=== PATIENT | male | born 1950 | race Caucasian/White ===

== ENCOUNTER 2016-12-17 10:59 | Day surgery (SDC) | payer MEDICARE, OTHER ==
[~2016-12-17] VITALS: Ht 188 cm; Wt 105.0 kg
[~2016-12-17 10:59] MED LIST: DICL75TA6 PO; FOLI0.4T2 PO; HYDR25TA4 PO; Lactated Ringer's 1,000 ML IV ONE; MULT-1073 PO
[2016-12-17] MEDS ORDERED: Propofol 10,000 mCg/mL 20 mL Inj ONE ×2 (11:00)
[2016-12-17] MEDS ORDERED: Lidocaine PF 1% 30 mL Inj ONE ×2 (11:00)
[2016-12-17 11:14] VITALS: BP 120/83; PULSE 85; RESP 16; O2SAT 99
[2016-12-17] MEDS ORDERED: METO50TA3 PO (11:27)
[2016-12-17] MEDS ORDERED: MAGN100T5 PO (11:27)
--- NOTE | 2016-12-17 11:34 | PCM.HPANE ---
Patient Data Date of Service: Dec 17, 2016 Surgeon Admitting Provider: Attending Provider:Azalia Kaur MD Primary Care Physician:Bradford Miranda MD Other Provider:Ce Westfall Anesthesia Reason for Visit Tubal Adenoma Of Colon Ht/WT & BMI Height (Feet): 6 Height (Inches): 2 Weight (Kilograms): 105 Body Mass Index 29.00 Allergies Coded Allergies: No Known Allergies (Unverified , 12/16/16) Past Anesthesia History Anesthesia History: Denies:: Abnormal Airway, Anesthesia Reactions, Difficult Intubation, Fam Anesthesia Reaction, Fam Malignant Hypertherm, Malignant Hyperthermia Diabetes History Hx Diabetes?: No MRSA MRSA: No Medications Blood Thinner: Coumadin (off permanently) Last Dose Blood Thinner: Dec 03, 2016 Hypertension Medication: Yes Home Meds Incl Beta Edie: Yes Date Beta Edie Taken: Dec 16, 2016 Time Beta Edie Taken: 0900 Reported Medications Magnesium Amino Acid Chelate (Magnesium)100 Mg [id number] Mg PO 12/17/16 Metoprolol Tartrate 50 Mg TabletUnknown Dose PO BID 30 Days Ref 0 12/17/16 Diclofenac ER 75 Mg [id number] Mg PO BID 07/09/16 Multivits-Min/FA/Lycopene/Lut (Centrum Silver Tablet)1 Each Tablet1 Each PO DAILY 07/09/16 Discontinued Reported Medications Hydrochlorothiazide 25 Mg [id number] Mg PO DAILY 30 Days Ref 0 07/09/16 Folic Acid 0.4 Mg Tablet0.4 Mg PO DAILY 07/09/16 History History of ENT Problems?: Yes HEENT History: Positive for:: Hearing Problem Denies:: Abnormal Airway Difficult Intubation Dysphagia Hx of Heart Problems?: Yes Cardiovascular History: Positive for:: Atrial Fibrillation (hx RVR during last colonoscopy) Hypertension Denies:: AICD Chest Pain Pacemaker Valvular Heart Disease Hx of Respiratory Problem?: Yes (left sided phrenic paralysis) Respiratory History: Denies:: Asthma COPD Cough Hemoptysis Pneumonia Tuberculosis Hx Neurologic Problems?: No Neurological History: Denies:: CVA Hx of GI Problems?: Yes Gastrointestinal History: Positive for:: Gastroesphageal Reflux ( INTERMITTENTLY) Liver Disease (HEP C) Denies:: Cirrhosis Diverticulitis Gall Bladder Disease Hiatal Hernia Rectal Bleeding Hx of Problems?: No HX of Peritoneal Dialysis: No Hx Musculoskeletal Problems?: No Musculoskeletal History: Denies:: Joint Replacement Hx of Psycho/Social Problems?: Yes Psycho Social History: Positive for:: Anxiety Hx Depression Hx Surgeries?: Yes (APPY) Hx Any Other Health Problems?: Yes Hx Diabetes: No Hx Alcohol Use: Yes (4 GLASSES OF WINE PER DAY-1L)Hx Substance Use: NoHave You Smoked inLast 12 mo: No Stop/Bang Treated for Sleep Apnea?: No Do You Have a CPAP Machine?: No S-Snoring: Do You Snore Loudly: Yes T-Tired: feel tired, fatigued: Yes O-Obsered: Observed not breath: Yes P-Blood Pressure: treated: Yes B- Body Mass Index > 35 kg/m2: Yes A- Age over 50: Yes N- Neck Large Circumference: Yes G- Gender Male: Yes ALLY Total Score: 8 ALLY Risk Assessment: High Risk, =/>3 Yes ALLY Category 4 OutPt Procedure: Yes Risk Assessment Category Category 1A: Patient has history of documented sleep apnea, and HAS NOT received any narcotic, sedative or anesthesia administration during this stay. Category 1B: Patient has history of documented sleep apnea, and HAS received any narcotic , sedative or anesthesia administration during this stay Category 2: Patient has SUSPECTED Obstructive Sleep Apnea, and HAS received any narcotic , sedative or anesthesia administration during this stay. Category 3: Patient has SUSPECTED Obstructive Sleep Apnea and HAS NOT received narcotic, sedative or anesthesia administration during this stay. Category 4: Outpatient in Procedural Areas with known sleep apnea or who screen positive for High Risk via the STOP/BANG questionnaire. Exam Exam Vital Signs Vital Signs Date Time Temp Pulse Resp B/P Pulse Ox O2 Delivery O2 Flow Rate FiO2 12/17/16 11:14 36.8 85 16 120/83 99 Room Air General Appearance: Alert, Oriented X3, Cooperative HEENT/AIRWAY: MP 2, Neck Movement (Full), Mouth Opening (OK, large decker) Lungs: Clear to Auscultation, Normal Air Movement Heart: Regular Rate/Rhythm, Normal S1, Normal S2 Plan Impression Patient chart reviewed, patient interviewed and anesthestic plan with risks, benefits, and alternatives discussed, and informed consent obtained. NPO Status: > 8 hours ASA Physical Status: ASA2 Mod Systemic Disease Anesthetic Plan: MAC Bene/Risks/Altern/Consents: Yes HP Complete Prior to Induction: Yes Shiv Cruz MD Dec 17, 2016 11:34
[2016-12-17] MEDS ORDERED: Ondansetron 2 mg/mL 2 mL Inj IVPUSH PRN (11:35)
[2016-12-17] MEDS ORDERED: Lactated Ringer's 1,000 ML IV SCH (11:35)
[2016-12-17] MEDS ORDERED: MetoCLOpramide 5 mg/mL 2 mL Inj IVPUSH PRN (11:35)
[2016-12-17 12:24] VITALS: BP 139/76; PULSE 70; RESP 12; O2SAT 94
[2016-12-17 12:34] VITALS: BP 114/60; PULSE 69; RESP 14; O2SAT 97
--- NOTE | 2016-12-17 12:36 | PCM.ANEP1 ---
Post Anesthesia Phase 1 PACU Phase 1 Assessment Date of Service: Dec 17, 2016 Vital Signs Vital Signs Date Time Temp Pulse Resp B/P Pulse Ox O2 Delivery O2 Flow Rate FiO2 12/17/16 11:14 36.8 85 16 120/83 99 Room Air Anesthetic Administered: MAC Level of Alertness: Sleepy, easy to arouse BURDEN's with Equal Strength: Yes Pain: No Oxygen Delivery: Room Air Lungs: Normal Air Movement Shiv Cruz MD Dec 17, 2016 12:36
--- NOTE | 2016-12-17 12:37 | PCM.ANEP2 ---
Post Anesthesia Evaluation ASA/CMS Post Anesthesia Date of Service: Dec 17, 2016 VS in Patient's Normal Range?: Yes Resp Stable; Airway Patent?: Yes CV Function & Hydration Stable: Yes Mental Status Recovered?: Yes Pain control Satisfactory?: Yes N/V Control Satisfactory?: Yes Shiv Cruz MD Dec 17, 2016 12:37
[2016-12-17 12:41] VITALS: BP 129/76; PULSE 72; RESP 12; O2SAT 98
--- NOTE | 2016-12-17 13:06 | ENDO ---
[address] [address] ENDOSCOPY PROCEDURE PATIENT: VINEET MACEDO : 1950 MR#: [id number] ADMIT: 12/17/2016 JOB ID: [id number] PROCEDURE: Colonoscopy. INDICATION: Patient with a history of tubular adenoma. Please see Dr. Shiv Cruz's anesthesia report for details regarding ASA classification, Mallampati score, and medications. INSTRUMENT USED: PCF H 180 AL. PREPARATION QUALITY: Fair. PROCEDURE DETAILS: After informed consent was obtained, the patient was brought to the GI Suite, where he was placed on oxygen via nasal cannula and monitored with continuous pulse oximeter, telemetry, and blood pressure monitoring. A time-out was performed and then the patient was placed in the left lateral decubitus position and medications were administered for sedation. Digital rectal exam was performed, which revealed a large firm prostate. The colonoscope was then inserted into the rectum and advanced under direct visualization to the terminal ileum, which was identified by the presence of the ileocecal valve and villous appearing mucosa of the terminal ileum. Once the terminal ileum was reached, the colonoscope was withdrawn back into the rectum as the mucosa and lumen were examined. In the rectum, retroflexion was performed. Following retroflexion, the remaining air in the rectum was suctioned, and the procedure was completed. FINDINGS: 1. The ileocecal valve appeared to be quite erythematous. No obvious ulcers or mass lesions noted there. We did intubate the terminal ileum, which appeared normal. Multiple biopsies were obtained of the ileocecal valve. 2. In the ascending colon, there was an approximately 5-6 mm submucosal lesion. The lesion was firm. Multiple biopsies were obtained. After multiple biopsies, we saw what appeared to be fat globules. This was suggestive of a lipoma. Madeleine ink was injected just distal to this lesion to identify in the future if needed. 3. In the descending colon, there was an approximately 6 mm flat polyp that was removed with cold biopsy forceps. 4. Scattered diverticula were seen throughout the descending colon. 5. Previously placed tattoo at 35 cm was noted. 6. Retroflexed views in the rectum revealed internal hemorrhoids. IMPRESSION: 1. Erythematous ileocecal valve. 2. Submucosal lesion in the ascending colon, appearance consistent with lipoma. 3. Descending colon polyp. 4. Sigmoid diverticulosis. 5. Previously placed tattoo at 35 cm. 6. Internal hemorrhoids. RECOMMENDATIONS: 1. Await pathology results. 2. Follow up in GI clinic with Dr. Suarez. 3. Fiber rich diet. COMPLICATIONS: None. ESTIMATED BLOOD LOSS: Less than 5 mL. MTDD
--- NOTE | 2016-12-18 11:55 | PATH ---
SURGICAL PATHOLOGY Attending Physician:Chioma Nieto CASE STATUS: Signed Out PATIENT NAME: VINEET MACEDO PID: [id number] : 1950 DATE COLLECTED:12/17/2016 20:45 SPECIMEN: 1: Colon, Biopsy 2: Colon, Biopsy 3: Colon, Biopsy CLINICAL HISTORY: 1). ASCENDING SUBMUCOSAL LESION BIOPSY 2). ILEOCECAL VALVE BIOPSY 3). DESCENDING COLON POLYP X1 FINAL DIAGNOSIS: 1.ASCENDING SUBMUCOSAL LESION BIOPSY: SUBMUCOSAL LIPOMA. 2.ILEOCECAL VALVE BIOPSY: FRAGMENT OF COLON MUCOSA WITH CHANGES CONSISTENT WITH SUBMUCOSAL LIPOMA. 3.DESCENDING COLON POLYP: HYPERPLASTIC POLYP. ICD10 CODE D12.2 GROSS DESCRIPTION: The specimen is received in three formalin filled containers labeled with the patient's name. 1). The specimen is sublabeled "ascending submucosal lesion" and consists of 2 portions of tissue which aggregate to 0.3 x 0.3 x 0.2 CM. The specimen is entirely submitted in cassette 1A. 2). The specimen is sublabeled "IC valve" and consists of 2 portions of tissue which aggregate to 0.3 x 0.3 x 0.2 CM. Specimen is entirely submitted in cassette 2A. 3). The specimen is sublabeled "descending colon polyp x1" and consists of multiple tiny portions of tissue which aggregate to 0.3 x 0.3 x 0.2 CM. The specimen is entirely submitted in cassette 3A. 12/17/2016 DAC MICRO DESCRIPTION: See diagnosis. ICD-9 CODES: CPT CODES: 1: 73352 2: 17744 3: 70733 Electronically Signed Out Tyrone Youssef MD [facility] Pathology [facility] [address], [place] [address] Technical component performed at [facility], [facility] [address], [place], [address]
== END 2016-12-17 23:59 | disposition home or self-care (01) ==
LOC: END 10:59
PROVIDERS: ATTEND Internal Medicine Gastroenterology
DX: Z12.11 Encounter for screening for malignant neoplasm of colon (principal); Z86.010 Personal history of colon polyps; K63.5 Polyp of colon; D12.4 Benign neoplasm of descending colon; D17.5 Benign lipomatous neoplasm of intra-abdominal organs; K64.8 Other hemorrhoids; K57.30 Diverticulosis of large intestine without perforation or abscess without bleeding; B19.20 Unspecified viral hepatitis C without hepatic coma; I10 Essential (primary) hypertension
CPT/HCPCS: 45380; 45381; 88305; J7120